=== PATIENT | female | born 1960 | race African-American/Black ===

== ENCOUNTER 2016-07-19 07:54 | Outpatient (CLI) | payer BC ==
[2016-07-19 08:17] LABS: Basophils % (Auto) 0.4 % (0.0-1.8); Eosinophils % (Auto) 2.2 % (0.0-4.3); Hematocrit 40.8 % (30.3-42.9); Hemoglobin 13.4 gm/dl (10.1-14.3); Mean Corpuscular HGB Conc 33 % (30-34); Mean Corpuscular Hemoglobin 29 pg (28-32); Mean Corpuscular Volume 89 fl (79-97); Platelet Count 196 K/mm3 (140-440); Red Cell Distribution Width 13.7 % (13.2-15.2); White Blood Count 7.1 K/mm3 (4.5-11.0)
[2016-07-19 08:35] LABS: Albumin/Globulin Ratio 1.2 %; BUN/Creatinine Ratio 23.84; Bilirubin,Total 0.3 mg/dL (0.1-1.2); Chloride 104.7 mmol/L (98-107); Potassium 4.3 mmol/L (3.6-5.0); Total Protein 7.4 g/dL (6.3-8.2)
[2016-07-21 17:21] LABS: Vitamin D, 25-OH, Total 33 ng/mL (30-100)
== END 2016-07-19 07:55 | disposition home or self-care (01) ==
LOC: LAB 07:54
PROVIDERS: ATTEND Internal Medicine Nephrology
DX: I12.9 Hypertensive chronic kidney disease with stage 1 through stage 4 chronic kidney disease, or unspecified chronic kidney disease (principal); N18.3 Chronic kidney disease, stage 3 (moderate); N28.1 Cyst of kidney, acquired; R80.9 Proteinuria, unspecified; E78.5 Hyperlipidemia, unspecified; E55.9 Vitamin D deficiency, unspecified
CPT/HCPCS: 36415; 80053; 82306; 83970; 85025

== ENCOUNTER 2016-07-27 07:59 | Outpatient (CLI) | payer BC ==
--- NOTE | 2016-07-27 11:52 | Ultrasound Report ---
RIGHT UPPER QUADRANT ULTRASOUND: HISTORY: Hepatitis B. Technique: Transabdominal ultrasound imaging with Doppler interrogation. FINDINGS: The gallbladder is sonolucent with no evidence of stones, polyps or wall thickening. The common duct is normal in caliber. Images of the liver parenchyma, pancreas, right kidney and aorta are within normal limits. The previously described possible calculus in the superior right kidney on 01/13/16 is not appreciated on today's exam. No perihepatic ascites. IMPRESSION: Unremarkable right upper quadrant ultrasound.
== END 2016-07-27 08:00 | disposition home or self-care (01) ==
LOC: SPVWC 07:59
PROVIDERS: ATTEND Internal Medicine Gastroenterology
DX: B19.10 Unspecified viral hepatitis B without hepatic coma (principal)
CPT/HCPCS: 76705

== ENCOUNTER 2017-01-24 08:53 | Outpatient (CLI) | payer BC ==
[2017-01-24 09:06] LABS: Basophils % (Auto) 0.5 % (0.0-1.8); Eosinophils % (Auto) 2.5 % (0.0-4.3); Hematocrit 41.7 % (30.3-42.9); Hemoglobin 13.8 gm/dl (10.1-14.3); Mean Corpuscular HGB Conc 33 % (30-34); Mean Corpuscular Hemoglobin 29 pg (28-32); Mean Corpuscular Volume 89 fl (79-97); Platelet Count 195 K/mm3 (140-440); Red Blood Count 4.69 M/mm3 (3.65-5.03); Red Cell Distribution Width 13.7 % (13.2-15.2); White Blood Count 7.4 K/mm3 (4.5-11.0)
[2017-01-24 09:29] LABS: Albumin/Globulin Ratio 1.1 %; Bilirubin,Total 0.5 mg/dL (0.1-1.2); Calcium 9.5 mg/dL (8.4-10.2); Chloride 100.1 mmol/L (98-107); Potassium 4.4 mmol/L (3.6-5.0); Total Protein 7.6 g/dL (6.3-8.2)
== END 2017-01-24 08:54 | disposition home or self-care (01) ==
LOC: LAB 08:53
PROVIDERS: ATTEND Internal Medicine Nephrology
DX: I12.9 Hypertensive chronic kidney disease with stage 1 through stage 4 chronic kidney disease, or unspecified chronic kidney disease (principal); N18.3 Chronic kidney disease, stage 3 (moderate); E78.5 Hyperlipidemia, unspecified; R80.9 Proteinuria, unspecified; N28.1 Cyst of kidney, acquired; E55.9 Vitamin D deficiency, unspecified; Z79.899 Other long term (current) drug therapy
CPT/HCPCS: 36415; 80053; 83036; 85025

== ENCOUNTER 2017-01-25 10:36 | Outpatient (CLI) | payer BC ==
--- NOTE | 2017-01-28 15:32 | Cat Scan Report ---
CT ABDOMEN WITHOUT CONTRAST: 01/25/17 10:36:00 CLINICAL:Followup renal cyst COMPARISON: MRI abdomen 05/13/15 and renal ultrasound 03/28/12 TECHNIQUE: Volumetric acquisition and 1.25 millimeter scan reconstructions from the lung bases through the iliac crest. The study was performed without oral contrast. FINDINGS: Abdomen: Stable left lower pole renal cyst measuring approximately 3.0 x 2.5 x 2.4 cm. A few punctate calcifications are identified dependently within the cyst and within the cyst wall. The additional smaller bilateral renal cysts identified on MRI are not identified on this study. The left kidney measures 9.1 cm in length and the right kidney measures 9.3 cm in length. The renal plica systems and ureters are nondilated. No renal calculus. Normal liver, bile ducts and gallbladder. Normal stomach, duodenum, pancreas and spleen. Normal adrenal glands. Mild calcification of the abdominal aorta. Normal inferior vena cava. No ascites and no pneumoperitoneum. The imaged portions of small bowel and colon are normal. The appendix is normal. IMPRESSION: 1. Stable 3 cm benign left lower pole renal cyst. 2. No other significant finding.
== END 2017-01-25 10:37 | disposition home or self-care (01) ==
LOC: SPVIMAG 10:36
PROVIDERS: ATTEND Internal Medicine Nephrology
DX: N18.3 Chronic kidney disease, stage 3 (moderate) (principal); N28.1 Cyst of kidney, acquired; I70.0 Atherosclerosis of aorta; N28.89 Other specified disorders of kidney and ureter
CPT/HCPCS: 74150

== ENCOUNTER 2017-05-24 13:49 | Outpatient (CLI) | payer BC ==
--- NOTE | 2017-05-25 10:28 | Mammography Report ---
BILATERAL DIGITAL SCREENING MAMMOGRAM with CAD: 05/24/17 13:49:00 CLINICAL: Routine screening. COMPARISON:05/05/16 FINDINGS: The breasts are heterogeneously dense, which may obscure small masses. No mass, architectural distortion or suspicious calcifications. IMPRESSION: No mammographic evidence of malignancy. BI-RADS CATEGORY: 1 - - Negative RECOMMENDATION: Routine mammographic screening in one year. COMMENT: Patient follow-up letters are generated by our [email or web address] application.
== END 2017-05-24 13:50 | disposition home or self-care (01) ==
LOC: SPVWC 13:49
PROVIDERS: ATTEND Obstetrics & Gynecology
DX: Z12.31 Encounter for screening mammogram for malignant neoplasm of breast (principal)
CPT/HCPCS: 77067; G0202

== ENCOUNTER 2017-11-14 08:44 | Outpatient (CLI) | payer BC ==
[2017-11-14 10:48] LABS: Basophils % (Auto) 0.5 % (0.0-1.8); Eosinophils # (Auto) 0.1 K/mm3 (0.0-0.4); Hematocrit 43.1 % (30.3-42.9); Hemoglobin 14.7 gm/dl (10.1-14.3); Lymphocytes # (Auto) 3.1 K/mm3 (1.2-5.4); Lymphocytes % (Auto) 43.9 % (13.4-35.0); Mean Corpuscular HGB Conc 34 % (30-34); Mean Corpuscular Hemoglobin 30 pg (28-32); Mean Corpuscular Volume 88 fl (79-97); Monocytes # (Auto) 0.5 K/mm3 (0.0-0.8); Monocytes % (Auto) 7.2 % (0.0-7.3); Platelet Count 200 K/mm3 (140-440); Red Cell Distribution Width 13.8 % (13.2-15.2)
[2017-11-14 11:15] LABS: Albumin 4.1 g/dL (3.9-5); Calcium 9.7 mg/dL (8.4-10.2); Chol/HDL Ratio 3.98 %
[2017-11-14 14:48] LABS: Creatinine,Urine 70.8 mg/dL (0.1-20.0)
== END 2017-11-14 08:45 | disposition home or self-care (01) ==
LOC: LAB 08:44
PROVIDERS: ATTEND Internal Medicine Nephrology
DX: N18.3 Chronic kidney disease, stage 3 (moderate) (principal); R94.4 Abnormal results of kidney function studies; E78.5 Hyperlipidemia, unspecified
CPT/HCPCS: 36415; 80053; 80061; 82565; 82570; 82575; 83970; 85025

== ENCOUNTER 2017-12-20 08:17 | Outpatient (CLI) | payer BC ==
--- NOTE | 2017-12-20 11:15 | Ultrasound Report ---
ULTRASOUND ABDOMEN INDICATION: Kidney disease. COMPARISON: 07/27/2016 RUQ ultrasound and 01/25/[address] FINDINGS: Abdominal sonography demonstrates grossly normal hepatic contours with slight nonspecific coarsening possible. No focal suspicious hepatic lesions or biliary dilatation. No gallstones, pericholecystic fluid or positive sonographic Ventura sign. Gallbladder wall thickness is 3 mm. CBD caliber is 6 mm. Homogenous spleen, 8.5 cm in length. No ascites. Normal imaged pancreas, aorta and IVC. No hydronephrosis. Slight increased renal cortical echogenicity. Right kidney is 9 x 5 x 5 cm with cortical thickness of 1.5 cm. Left kidney estimated at 8.8 x 4.7 x 3.7 cm with cortical thickness of 1.2 cm. A 2.6 x 1.7 x 2.2 cm left renal cortical cyst again noted with small peripheral calcifications visible on prior CT while its size grossly stable dating back to 03/28/2012 renal ultrasound. CONCLUSION: No acute abdominal sonographic abnormality in this patient with mild underlying medical renal disease, stable left renal cyst and slightly coarse liver, as described. Please correlate. Thank you for the opportunity to participate in this patient's care.
== END 2017-12-20 08:18 | disposition home or self-care (01) ==
LOC: SPVWC 08:17
PROVIDERS: ATTEND Internal Medicine Nephrology
DX: N18.3 Chronic kidney disease, stage 3 (moderate) (principal); N28.1 Cyst of kidney, acquired
CPT/HCPCS: 76700

== ENCOUNTER 2017-12-23 10:32 | Outpatient (CLI) | payer BC ==
[2017-12-23 11:05] LABS: Calcium 9.5 mg/dL (8.4-10.2)
[2017-12-23 13:30] LABS: Bilirubin,Urine NEG (Negative); Blood,Urine NEG (Negative); Color,Urine Amber (Yellow); Mucus,Urine FEW /HPF; Urobilinogen,Urine < 2.0 mg/dL (<2.0)
== END 2017-12-23 10:33 | disposition home or self-care (01) ==
LOC: LAB 10:32
PROVIDERS: ATTEND Internal Medicine Nephrology
DX: I13.0 Hypertensive heart and chronic kidney disease with heart failure and stage 1 through stage 4 chronic kidney disease, or unspecified chronic kidney disease (principal); N18.3 Chronic kidney disease, stage 3 (moderate); R80.9 Proteinuria, unspecified; E78.5 Hyperlipidemia, unspecified; N28.1 Cyst of kidney, acquired; E55.9 Vitamin D deficiency, unspecified; R73.01 Impaired fasting glucose
CPT/HCPCS: 36415; 80048; 81001; 82040; 84100; 89050

== ENCOUNTER 2018-08-25 13:48 | Outpatient (CLI) | payer BC ==
[2018-08-25 14:35] LABS: Calcium 9.5 mg/dL (8.4-10.2)
[2018-08-25 14:49] LABS: Bacteria,Urine 1+ /HPF (Negative); Bilirubin,Urine NEG (Negative); Blood,Urine NEG (Negative); Color,Urine Amber (Yellow); Urobilinogen,Urine < 2.0 mg/dL (<2.0)
[2018-08-25 14:50] LABS: Protein,Urine >2000 mg dL mg/dL (Negative)
[2018-08-25 14:58] LABS: Creatinine,Urine 193.7 mg/dL (0.1-20.0)
[2018-08-25 15:09] LABS: Protein/Creatinine Ratio,Urine 1.39
== END 2018-08-25 13:49 | disposition home or self-care (01) ==
LOC: LAB 13:48
PROVIDERS: ATTEND Internal Medicine Nephrology
DX: I12.9 Hypertensive chronic kidney disease with stage 1 through stage 4 chronic kidney disease, or unspecified chronic kidney disease (principal); N18.3 Chronic kidney disease, stage 3 (moderate); E78.5 Hyperlipidemia, unspecified; R80.9 Proteinuria, unspecified; E55.9 Vitamin D deficiency, unspecified; N28.1 Cyst of kidney, acquired
CPT/HCPCS: 36415; 80053; 81001; 82570; 83036; 84156; 89050

== ENCOUNTER 2019-01-15 08:50 | Outpatient (CLI) | payer BC ==
[2019-01-15 09:08] LABS: Basophils % (Auto) 0.4 % (0.0-1.8); Eosinophils # (Auto) 0.2 K/mm3 (0.0-0.4); Eosinophils % (Auto) 2.1 % (0.0-4.3); Hematocrit 39.6 % (30.3-42.9); Hemoglobin 13.2 gm/dl (10.1-14.3); Lymphocytes # (Auto) 3.2 K/mm3 (1.2-5.4); Lymphocytes % (Auto) 41.9 % (13.4-35.0); Mean Corpuscular HGB Conc 33 % (30-34); Mean Corpuscular Volume 90 fl (79-97); Monocytes # (Auto) 0.5 K/mm3 (0.0-0.8); Monocytes % (Auto) 6.9 % (0.0-7.3); Platelet Count 213 K/mm3 (140-440); Red Blood Count 4.42 M/mm3 (3.65-5.03); Red Cell Distribution Width 13.8 % (13.2-15.2)
[2019-01-15 09:28] LABS: Albumin 4.1 g/dL (3.9-5); Calcium 9.6 mg/dL (8.4-10.2)
[2019-01-15 15:49] LABS: Creatinine,Urine 147.8 mg/dL (0.1-20.0); Protein/Creatinine Ratio,Urine 1.17
== END 2019-01-15 08:51 | disposition home or self-care (01) ==
LOC: LAB 08:50
PROVIDERS: ATTEND Internal Medicine Nephrology
DX: I12.9 Hypertensive chronic kidney disease with stage 1 through stage 4 chronic kidney disease, or unspecified chronic kidney disease (principal); N18.3 Chronic kidney disease, stage 3 (moderate); R80.9 Proteinuria, unspecified; E78.5 Hyperlipidemia, unspecified; N28.1 Cyst of kidney, acquired; E55.9 Vitamin D deficiency, unspecified; R73.01 Impaired fasting glucose; E66.9 Obesity, unspecified
CPT/HCPCS: 36415; 80053; 82570; 84156; 85025

== ENCOUNTER 2019-02-19 09:51 | Outpatient (CLI) | payer BC ==
[2019-02-19 10:34] LABS: Bilirubin,Urine NEG (Negative); Blood,Urine NEG (Negative); Color,Urine Amber (Yellow); Urobilinogen,Urine < 2.0 mg/dL (<2.0)
[2019-02-19 10:38] LABS: Protein,Urine >2000 mg dL mg/dL (Negative)
[2019-02-19 10:57] LABS: Albumin 3.9 g/dL (3.9-5); Calcium 9.1 mg/dL (8.4-10.2)
[2019-02-19 11:29] LABS: Patient Height,Urine 65.5 inches
== END 2019-02-19 09:52 | disposition home or self-care (01) ==
LOC: LAB 09:51
PROVIDERS: ATTEND Internal Medicine Nephrology
DX: I12.9 Hypertensive chronic kidney disease with stage 1 through stage 4 chronic kidney disease, or unspecified chronic kidney disease (principal); N18.3 Chronic kidney disease, stage 3 (moderate); E78.5 Hyperlipidemia, unspecified; N28.1 Cyst of kidney, acquired; E55.9 Vitamin D deficiency, unspecified; R73.01 Impaired fasting glucose; R80.9 Proteinuria, unspecified; E66.9 Obesity, unspecified
CPT/HCPCS: 36415; 80048; 81001; 82040; 82565; 82570; 82575; 84100; 84156; 84165; 86160; 86225; 87517; 89050

== ENCOUNTER 2019-02-20 07:21 | Outpatient (CLI) | payer BC ==
--- NOTE | 2019-02-20 08:50 | Ultrasound Report ---
ULTRASOUND ABDOMEN, COMPLETE INDICATION: N18.3 CHRONIC KIDNEY DISEASE STAGE 3. COMPARISON: None available. FINDINGS: Pancreas: Normal. Abdominal Aorta: Normal. IVC: Normal. Liver: Moderate coarse increased echotexture characteristic for steatosis. Liver measures 13.8 cm in length. Gallbladder: Normal. Bile ducts: Normal. Common Bile Duct measures 3 mm. Right Kidney: Moderate increased echotexture measuring 9.1 cm in length. Left Kidney: Moderate increased echotexture characteristic for medical renal disease measuring 10.4 c m in length.Complex cystic mass with internal echoes and calcification measuring 2.9 x 2.7 x 2.8 cm. No color Doppler flow visualized on color Doppler interrogation to suggest solid renal cell carcinoma Spleen: Normal. Free fluid: None. Additional Findings: None. IMPRESSION: 1. Echogenic kidneys characteristic for medical renal disease. 2. Complex left renal cystic lesion measuring 2.9 cm characteristic for Bosniak type II F renal cyst. Recommend follow-up ultrasound and/or CT in 6 months. 3. Moderate hepatic steatosis Signer Name: Francis Campbell MD Signed: 02/20/2019 8:45 AM Workstation Name: [id number]
== END 2019-02-20 07:22 | disposition home or self-care (01) ==
LOC: US 07:21
PROVIDERS: ATTEND Internal Medicine Nephrology
DX: N28.1 Cyst of kidney, acquired (principal); N18.3 Chronic kidney disease, stage 3 (moderate)
CPT/HCPCS: 76700

== ENCOUNTER 2019-05-23 08:29 | Outpatient (CLI) | payer BC ==
[2019-05-23 09:24] LABS: Albumin 4.2 g/dL (3.9-5); Calcium 9.5 mg/dL (8.4-10.2)
[2019-05-23 11:58] LABS: Creatinine,Urine 162.3 mg/dL (0.1-20.0)
[2019-05-23 12:10] LABS: Protein/Creatinine Ratio,Urine 1.37
== END 2019-05-23 08:30 | disposition home or self-care (01) ==
LOC: LAB 08:29
PROVIDERS: ATTEND Internal Medicine Nephrology
DX: Z09 Encounter for follow-up examination after completed treatment for conditions other than malignant neoplasm (principal); I12.9 Hypertensive chronic kidney disease with stage 1 through stage 4 chronic kidney disease, or unspecified chronic kidney disease; N18.3 Chronic kidney disease, stage 3 (moderate); R80.9 Proteinuria, unspecified; R73.01 Impaired fasting glucose; E78.5 Hyperlipidemia, unspecified; N28.1 Cyst of kidney, acquired; E55.9 Vitamin D deficiency, unspecified
CPT/HCPCS: 36415; 80053; 82570; 84156

== ENCOUNTER 2019-06-19 08:49 | Outpatient (CLI) | payer BC ==
--- NOTE | 2019-06-19 13:48 | Mammography Report ---
DIGITAL SCREENING MAMMOGRAM WITH TOMOSYNTHESIS WITH CAD, 06/19/2019 INDICATION: Routine Screening Mammography. SCREENING MAMMOGRAM TECHNIQUE: Digital bilateral 2D and 3D mammography with tomosynthesis was obtained in the craniocau ignacio and mediolateral oblique projections. Computer-Aided Detection (CAD) analysis was used for inter pretation of this study. COMPARISON: 05/30/2018 FINDINGS: Breast Density: The breasts are heterogeneously dense, which may obscure small masses. There is no evidence of dominant mass, suspicious calcifications or architectural distortion in eithe r breast. IMPRESSION: No mammographic evidence of malignancy. Follow up recommendation: Routine yearly BI-RADS Category 1: Negative. A "normal" or negative report should not discourage follow up or biopsy of a clinically significant f inding. A written summary of these findings will be mailed to the patient. The patient will be entered into a mammography reporting system which will generate a reminder letter for the patient's next appointmen t at the appropriate interval. The [employer] recommends yearly mammograms starting at age 40 and continuing as l vinnie as a woman is in good health. Breast MRI is recommended for women with an approximate 20-25% or greater lifetime risk of breast cancer, including women with a strong family history of breast or ova joy cancer or who have been treated for Hodgkin's disease. Signer Name: Farhan Cotton MD Signed: 06/19/2019 1:44 PM Workstation Name: [id number]
== END 2019-06-19 08:50 | disposition home or self-care (01) ==
LOC: SPVWC 08:49
PROVIDERS: ATTEND Obstetrics & Gynecology
DX: Z12.31 Encounter for screening mammogram for malignant neoplasm of breast (principal)
CPT/HCPCS: 77063; 77067

== ENCOUNTER 2019-11-28 08:29 | Outpatient (CLI) | payer BC ==
[2019-11-28 09:27] LABS: Albumin 4.3 g/dL (3.9-5)
== END 2019-11-28 08:30 | disposition home or self-care (01) ==
LOC: LAB 08:29
PROVIDERS: ATTEND Internal Medicine Gastroenterology
DX: B19.10 Unspecified viral hepatitis B without hepatic coma (principal)
CPT/HCPCS: 36415; 80053; 82106; 87517

== ENCOUNTER 2019-12-03 06:22 | Outpatient (CLI) | payer BC | END 2019-12-03 06:23 | disposition home or self-care (01) | LOC: MRI 06:22 | PROVIDERS: ATTEND Orthopaedic Surgery | DX: S83.242A Other tear of medial meniscus, current injury, left knee, initial encounter (principal); M17.12 Unilateral primary osteoarthritis, left knee; M25.462 Effusion, left knee; M25.762 Osteophyte, left knee; X58.XXXA Exposure to other specified factors, initial encounter; Y93.89 Activity, other specified; Y92.89 Other specified places as the place of occurrence of the external cause; Y99.8 Other external cause status | CPT/HCPCS: 73721 ==

== ENCOUNTER 2020-05-02 07:13 | Outpatient (CLI) | payer BC ==
[2020-05-02 07:35] LABS: Hematocrit 38.5 % (30.3-42.9); Hemoglobin 12.7 gm/dl (10.1-14.3)
[2020-05-02 08:09] LABS: Albumin 4.1 g/dL (3.9-5); Calcium 9.2 mg/dL (8.4-10.2)
[2020-05-02 11:28] LABS: Creatinine,Urine 100.7 mg/dL (0.1-20.0); Protein/Creatinine Ratio,Urine 0.47
[2020-05-05 13:49] LABS: Vitamin D, 25-OH, D2 <4 ng/mL
== END 2020-05-02 07:14 | disposition home or self-care (01) ==
LOC: LAB 07:13
PROVIDERS: ATTEND Internal Medicine Nephrology
DX: I12.9 Hypertensive chronic kidney disease with stage 1 through stage 4 chronic kidney disease, or unspecified chronic kidney disease (principal); N18.4 Chronic kidney disease, stage 4 (severe); R80.9 Proteinuria, unspecified; E78.5 Hyperlipidemia, unspecified; N28.1 Cyst of kidney, acquired; E55.9 Vitamin D deficiency, unspecified; R73.01 Impaired fasting glucose; E66.9 Obesity, unspecified
CPT/HCPCS: 36415; 80053; 82306; 82570; 83036; 83970; 84156; 85014; 85018

== ENCOUNTER 2020-07-03 12:41 | Outpatient (CLI) | payer BC ==
--- NOTE | 2020-07-03 17:05 | Mammography Report ---
DIGITAL SCREENING MAMMOGRAM WITH TOMOSYNTHESIS WITH CAD, 07/03/2020 CLINICAL INFORMATION / INDICATION: Routine Screening Mammography. TECHNIQUE: Digital bilateral 2D and 3D mammography with tomosynthesis was obtained in the craniocaud al and mediolateral oblique projections. Computer-Aided Detection (CAD) analysis was used for interp retation of this study. COMPARISON: Prior mammograms 06/19/2019 and 05/30/2018 FINDINGS: Breast Density: There are scattered areas of fibroglandular density. No dominant mass, suspicious calcifications, or architectural distortion in either breast. There has been no significant change compared with the prior examinations. IMPRESSION: No mammographic evidence of malignancy. Follow up recommendation: Routine yearly BI-RADS Category 1: Negative. A "normal" or negative report should not discourage follow up or biopsy of a clinically significant f inding. A written summary of these findings will be mailed to the patient. The patient will be entered into a mammography reporting system which will generate a reminder letter for the patient's next appointmen t at the appropriate interval. The [employer] recommends yearly mammograms starting at age 40 and continuing as l vinnie as a woman is in good health. Breast MRI is recommended for women with an approximate 20-25% or greater lifetime risk of breast cancer, including women with a strong family history of breast or ova joy cancer or who have been treated for Hodgkin's disease. Signer Name: Yessenia Menchaca MD Signed: 07/03/2020 5:01 PM Workstation Name: [id number]
== END 2020-07-03 12:42 | disposition home or self-care (01) ==
LOC: SPVWC 12:41
PROVIDERS: ATTEND Obstetrics & Gynecology
DX: Z12.31 Encounter for screening mammogram for malignant neoplasm of breast (principal)
CPT/HCPCS: 77063; 77067

== ENCOUNTER 2020-07-04 12:20 | Outpatient (CLI) | payer BC | END 2020-07-04 12:21 | disposition home or self-care (01) | LOC: LAB 12:20 | PROVIDERS: ATTEND Internal Medicine | DX: M79.672 Pain in left foot (principal) | CPT/HCPCS: 36415; 84550 ==

== ENCOUNTER 2020-07-08 09:01 | Outpatient (CLI) | payer BC ==
--- NOTE | 2020-07-08 12:05 | Ultrasound Report ---
Limited abdominal ultrasound. INDICATION / CLINICAL INFORMATION: HEPATITIS B,FATTY LIVER. COMPARISON: None available. FINDINGS: PANCREAS: No significant abnormality. ABDOMINAL AORTA: No significant abnormality. IVC: No significant abnormality. LIVER: Liver measures 10.6 cm with fatty infiltration. GALLBLADDER: No gallstones or gallbladder wall thickening BILE DUCTS: No significant abnormality. Common bile duct measures 3 mm. KIDNEYS: Right: Right kidney is echogenic with small cysts measure 1.4 cm. Left: No significant abno rmality. IMPRESSION: 1. Fatty infiltration of the liver. 2. Echogenic right kidney with renal cyst. Signer Name: Enoch Anne MD Signed: 07/08/2020 12:01 PM Workstation Name: [email or web address]
== END 2020-07-08 09:02 | disposition home or self-care (01) ==
LOC: US 09:01
PROVIDERS: ATTEND Internal Medicine Gastroenterology
DX: N28.1 Cyst of kidney, acquired (principal); K76.0 Fatty (change of) liver, not elsewhere classified; B19.10 Unspecified viral hepatitis B without hepatic coma
CPT/HCPCS: 76705

== ENCOUNTER 2020-07-10 10:18 | Outpatient (CLI) | payer BC ==
[2020-07-10 11:10] LABS: Basophils % (Auto) 0.3 % (0.0-1.8); Eosinophils # (Auto) 0.2 K/mm3 (0.0-0.4); Eosinophils % (Auto) 2.3 % (0.0-4.3); Hematocrit 34.7 % (30.3-42.9); Hemoglobin 11.7 gm/dl (10.1-14.3); Lymphocytes # (Auto) 2.9 K/mm3 (1.2-5.4); Lymphocytes % (Auto) 30.1 % (13.4-35.0); Mean Corpuscular HGB Conc 34 % (30-34); Mean Corpuscular Volume 89 fl (79-97); Platelet Count 242 K/mm3 (140-440); Red Blood Count 3.92 M/mm3 (3.65-5.03); Red Cell Distribution Width 15.3 % (13.2-15.2)
[2020-07-10 11:41] LABS: Calcium 9.2 mg/dL (8.4-10.2)
== END 2020-07-10 10:19 | disposition home or self-care (01) ==
LOC: LAB 10:18
PROVIDERS: ATTEND Internal Medicine Nephrology
DX: I10 Essential (primary) hypertension (principal); N18.4 Chronic kidney disease, stage 4 (severe); R80.9 Proteinuria, unspecified; E78.5 Hyperlipidemia, unspecified; N28.1 Cyst of kidney, acquired; E55.9 Vitamin D deficiency, unspecified; R73.01 Impaired fasting glucose; E66.9 Obesity, unspecified
CPT/HCPCS: 36415; 80053; 83970; 85025

== ENCOUNTER 2020-07-25 07:35 | Outpatient (CLI) | payer BC ==
[2020-07-25 08:40] LABS: Calcium 9.3 mg/dL (8.4-10.2)
[2020-07-25 08:53] LABS: Hematocrit 35.3 % (30.3-42.9); Hemoglobin 11.5 gm/dl (10.1-14.3); Mean Corpuscular HGB Conc 33 % (30-34); Mean Corpuscular Volume 90 fl (79-97); Platelet Count 226 K/mm3 (140-440); Red Blood Count 3.91 M/mm3 (3.65-5.03); Red Cell Distribution Width 16.3 % (13.2-15.2)
== END 2020-07-25 07:36 | disposition home or self-care (01) ==
LOC: LAB 07:35
PROVIDERS: ATTEND Internal Medicine Gastroenterology
DX: I12.9 Hypertensive chronic kidney disease with stage 1 through stage 4 chronic kidney disease, or unspecified chronic kidney disease (principal); N18.4 Chronic kidney disease, stage 4 (severe); B19.10 Unspecified viral hepatitis B without hepatic coma; R80.9 Proteinuria, unspecified; E78.5 Hyperlipidemia, unspecified; N28.1 Cyst of kidney, acquired; E55.9 Vitamin D deficiency, unspecified; R73.01 Impaired fasting glucose; E66.9 Obesity, unspecified; M12.9 Arthropathy, unspecified; E87.5 Hyperkalemia
CPT/HCPCS: 36415; 80053; 82106; 84100; 84550; 85027; 87517

== ENCOUNTER 2020-09-18 08:20 | Outpatient (CLI) | payer BC ==
[2020-09-18 08:52] LABS: Basophils % (Auto) 0.4 % (0.0-1.8); Eosinophils # (Auto) 0.4 K/mm3 (0.0-0.4); Eosinophils % (Auto) 4.5 % (0.0-4.3); Hematocrit 36.8 % (30.3-42.9); Hemoglobin 12.2 gm/dl (10.1-14.3); Lymphocytes % (Auto) 36.9 % (13.4-35.0); Mean Corpuscular HGB Conc 33 % (30-34); Mean Corpuscular Volume 90 fl (79-97); Monocytes # (Auto) 0.9 K/mm3 (0.0-0.8); Monocytes % (Auto) 11.2 % (0.0-7.3); Platelet Count 219 K/mm3 (140-440); Red Blood Count 4.08 M/mm3 (3.65-5.03); Red Cell Distribution Width 15.2 % (13.2-15.2)
[2020-09-18 09:24] LABS: Albumin 4.2 g/dL (3.9-5); Calcium 9.4 mg/dL (8.4-10.2); Uric Acid 5.5 mg/dL (3.5-7.6)
== END 2020-09-18 08:21 | disposition home or self-care (01) ==
LOC: LAB 08:20
PROVIDERS: ATTEND Internal Medicine Nephrology
DX: I12.9 Hypertensive chronic kidney disease with stage 1 through stage 4 chronic kidney disease, or unspecified chronic kidney disease (principal); N18.4 Chronic kidney disease, stage 4 (severe); R80.9 Proteinuria, unspecified; E78.5 Hyperlipidemia, unspecified; E55.9 Vitamin D deficiency, unspecified; E66.9 Obesity, unspecified; M12.9 Arthropathy, unspecified
CPT/HCPCS: 36415; 80048; 82040; 83970; 84100; 84550; 85025

== ENCOUNTER 2020-12-17 07:27 | Outpatient (CLI) | payer BC ==
[2020-12-17 08:19] LABS: Basophils % (Auto) 0.5 % (0.0-1.8); Eosinophils # (Auto) 0.3 K/mm3 (0.0-0.4); Eosinophils % (Auto) 3.5 % (0.0-4.3); Hematocrit 36.1 % (30.3-42.9); Hemoglobin 11.9 gm/dl (10.1-14.3); Lymphocytes # (Auto) 2.6 K/mm3 (1.2-5.4); Lymphocytes % (Auto) 35.2 % (13.4-35.0); Mean Corpuscular HGB Conc 33 % (30-34); Mean Corpuscular Volume 90 fl (79-97); Monocytes # (Auto) 0.4 K/mm3 (0.0-0.8); Monocytes % (Auto) 6.1 % (0.0-7.3); Platelet Count 209 K/mm3 (140-440); Red Blood Count 4.01 M/mm3 (3.65-5.03); Red Cell Distribution Width 15.4 % (13.2-15.2)
[2020-12-17 08:39] LABS: Albumin 4.4 g/dL (3.9-5); Calcium 9.5 mg/dL (8.4-10.2)
[2020-12-17 11:17] LABS: Bilirubin,Urine NEG (Negative); Blood,Urine NEG (Negative); Color,Urine Amber (Yellow); Urobilinogen,Urine < 2.0 mg/dL (<2.0)
[2020-12-17 14:16] LABS: Creatinine,Urine 118.5 mg/dL (0.1-20.0); Protein/Creatinine Ratio,Urine 0.68
== END 2020-12-17 07:28 | disposition home or self-care (01) ==
LOC: LAB 07:27
PROVIDERS: ATTEND Internal Medicine Nephrology
DX: I12.9 Hypertensive chronic kidney disease with stage 1 through stage 4 chronic kidney disease, or unspecified chronic kidney disease (principal); N18.4 Chronic kidney disease, stage 4 (severe); R80.9 Proteinuria, unspecified; E78.5 Hyperlipidemia, unspecified; N28.1 Cyst of kidney, acquired; E55.9 Vitamin D deficiency, unspecified; R73.01 Impaired fasting glucose; E66.9 Obesity, unspecified; M12.9 Arthropathy, unspecified; E87.5 Hyperkalemia
CPT/HCPCS: 36415; 80048; 81001; 82040; 82570; 83036; 83970; 84100; 84156; 85025; 87086

== ENCOUNTER 2021-02-25 08:00 | Outpatient (CLI) | payer BC ==
[2021-02-25 10:24] LABS: Basophils % (Auto) 0.4 % (0.0-1.8); Bilirubin,Urine NEG (Negative); Blood,Urine NEG (Negative); Color,Urine Amber (Yellow); Eosinophils # (Auto) 0.2 K/mm3 (0.0-0.4); Eosinophils % (Auto) 2.1 % (0.0-4.3); Hematocrit 36.7 % (30.3-42.9); Hemoglobin 11.8 gm/dl (10.1-14.3); Lymphocytes # (Auto) 2.7 K/mm3 (1.2-5.4); Lymphocytes % (Auto) 31.9 % (13.4-35.0); Mean Corpuscular HGB Conc 32 % (30-34); Mean Corpuscular Volume 91 fl (79-97); Monocytes # (Auto) 0.6 K/mm3 (0.0-0.8); Monocytes % (Auto) 6.7 % (0.0-7.3); Mucus,Urine FEW /HPF; Platelet Count 226 K/mm3 (140-440); Red Blood Count 4.03 M/mm3 (3.65-5.03); Red Cell Distribution Width 15.4 % (13.2-15.2); Urobilinogen,Urine < 2.0 mg/dL (<2.0)
[2021-02-25 10:26] LABS: Creatinine,Urine 151.6 mg/dL (0.1-20.0); Protein/Creatinine Ratio,Urine 1.26
[2021-02-25 10:36] LABS: Albumin 4.2 g/dL (3.9-5); Calcium 9.6 mg/dL (8.4-10.2)
[2021-02-25 10:45] LABS: Protein,Urine >500 mg/dL (Negative)
== END 2021-02-25 08:01 | disposition home or self-care (01) ==
LOC: LAB 08:00
PROVIDERS: ATTEND Internal Medicine Nephrology
DX: I12.9 Hypertensive chronic kidney disease with stage 1 through stage 4 chronic kidney disease, or unspecified chronic kidney disease (principal); N18.4 Chronic kidney disease, stage 4 (severe); R73.01 Impaired fasting glucose; R80.9 Proteinuria, unspecified; E78.5 Hyperlipidemia, unspecified; N28.1 Cyst of kidney, acquired; E55.9 Vitamin D deficiency, unspecified; E66.9 Obesity, unspecified; M12.9 Arthropathy, unspecified; E87.5 Hyperkalemia
CPT/HCPCS: 36415; 80048; 81001; 82040; 82570; 83036; 83970; 84100; 84156; 85025

== ENCOUNTER 2021-05-20 08:02 | Outpatient (CLI) | payer BC ==
[2021-05-20 08:43] LABS: Basophils % (Auto) 0.5 % (0.0-1.8); Eosinophils # (Auto) 0.3 K/mm3 (0.0-0.4); Eosinophils % (Auto) 3.5 % (0.0-4.3); Hematocrit 37.8 % (30.3-42.9); Hemoglobin 11.9 gm/dl (10.1-14.3); Lymphocytes # (Auto) 2.8 K/mm3 (1.2-5.4); Mean Corpuscular HGB Conc 32 % (30-34); Mean Corpuscular Volume 91 fl (79-97); Monocytes # (Auto) 0.5 K/mm3 (0.0-0.8); Monocytes % (Auto) 6.6 % (0.0-7.3); Platelet Count 215 K/mm3 (140-440); Red Blood Count 4.16 M/mm3 (3.65-5.03); Red Cell Distribution Width 15.7 % (13.2-15.2)
[2021-05-20 09:08] LABS: Chol/HDL Ratio 3.89 %
[2021-05-20 15:34] LABS: Creatinine,Urine 118.1 mg/dL (0.1-20.0); Protein/Creatinine Ratio,Urine 1.63
[2021-05-23 12:48] LABS: Vitamin D, 25-OH, D2 <4 ng/mL
== END 2021-05-20 08:03 | disposition home or self-care (01) ==
LOC: LAB 08:02
PROVIDERS: ATTEND Internal Medicine Nephrology
DX: I12.9 Hypertensive chronic kidney disease with stage 1 through stage 4 chronic kidney disease, or unspecified chronic kidney disease (principal); N18.4 Chronic kidney disease, stage 4 (severe); E55.9 Vitamin D deficiency, unspecified; R80.9 Proteinuria, unspecified; N28.1 Cyst of kidney, acquired; R73.01 Impaired fasting glucose; E66.9 Obesity, unspecified; M12.9 Arthropathy, unspecified; E87.5 Hyperkalemia; N39.0 Urinary tract infection, site not specified
CPT/HCPCS: 36415; 80061; 82306; 82570; 83735; 83970; 84156; 85025

== ENCOUNTER 2021-05-28 08:46 | Outpatient (CLI) | payer BC ==
[2021-05-28 09:34] LABS: Calcium 8.9 mg/dL (8.4-10.2)
== END 2021-05-28 08:47 | disposition home or self-care (01) ==
LOC: LAB 08:46
PROVIDERS: ATTEND Internal Medicine Nephrology
DX: I12.9 Hypertensive chronic kidney disease with stage 1 through stage 4 chronic kidney disease, or unspecified chronic kidney disease (principal); N18.4 Chronic kidney disease, stage 4 (severe); R80.9 Proteinuria, unspecified; E78.5 Hyperlipidemia, unspecified; E55.9 Vitamin D deficiency, unspecified; R73.01 Impaired fasting glucose; E66.9 Obesity, unspecified; M12.9 Arthropathy, unspecified; N39.0 Urinary tract infection, site not specified
CPT/HCPCS: 36415; 80048; 82040; 84100

== ENCOUNTER 2021-07-21 10:57 | Outpatient (CLI) | payer BC ==
--- NOTE | 2021-07-22 08:52 | Mammography Report ---
DIGITAL SCREENING MAMMOGRAM WITH TOMOSYNTHESIS WITH CAD, 07/21/2021 CLINICAL INFORMATION / INDICATION: Screening TECHNIQUE: Digital bilateral 2D and 3D mammography with tomosynthesis was obtained in the craniocaud al and mediolateral oblique projections. Computer-Aided Detection (CAD) analysis was used for interp retation of this study. COMPARISON: 01/13/2021 FINDINGS: Breast Density: There are scattered areas of fibroglandular density. No dominant mass, suspicious calcifications, or architectural distortion in either breast. Mild bilateral nodularity is stable. IMPRESSION: No mammographic evidence of malignancy. Follow up recommendation: Routine yearly BI-RADS Category 2: BENIGN. A "normal" or negative report should not discourage follow up or biopsy of a clinically significant f inding. A written summary of these findings will be mailed to the patient. The patient will be entered into a mammography reporting system which will generate a reminder letter for the patient's next appointmen t at the appropriate interval. The [employer] recommends yearly mammograms starting at age 40 and continuing as l vinnie as a woman is in good health. Breast MRI is recommended for women with an approximate 20-25% or greater lifetime risk of breast cancer, including women with a strong family history of breast or ova joy cancer or who have been treated for Hodgkin's disease. Signer Name: Rolando Farfan MD Signed: 07/22/2021 8:48 AM Workstation Name: [email or web address]
== END 2021-07-21 10:58 | disposition home or self-care (01) ==
LOC: SPVWC 10:57
PROVIDERS: ATTEND Obstetrics & Gynecology
DX: Z12.31 Encounter for screening mammogram for malignant neoplasm of breast (principal); N64.89 Other specified disorders of breast
CPT/HCPCS: 77063; 77067

== ENCOUNTER 2021-07-31 10:57 | Outpatient (CLI) | payer BC ==
[2021-07-31 12:25] LABS: Albumin 4.3 g/dL (3.9-5); Calcium 9.3 mg/dL (8.4-10.2)
[2021-07-31 13:33] LABS: Basophils % (Auto) 0.5 % (0.0-1.8); Eosinophils # (Auto) 0.2 K/mm3 (0.0-0.4); Eosinophils % (Auto) 2.7 % (0.0-4.3); Hematocrit 37.3 % (30.3-42.9); Hemoglobin 11.7 gm/dl (10.1-14.3); Lymphocytes # (Auto) 3.3 K/mm3 (1.2-5.4); Lymphocytes % (Auto) 41.2 % (13.4-35.0); Mean Corpuscular HGB Conc 31 % (30-34); Mean Corpuscular Volume 91 fl (79-97); Monocytes # (Auto) 0.5 K/mm3 (0.0-0.8); Monocytes % (Auto) 6.5 % (0.0-7.3); Platelet Count 226 K/mm3 (140-440); Red Cell Distribution Width 15.2 % (13.2-15.2)
== END 2021-07-31 10:58 | disposition home or self-care (01) ==
LOC: LAB 10:57
PROVIDERS: ATTEND Internal Medicine
DX: I12.9 Hypertensive chronic kidney disease with stage 1 through stage 4 chronic kidney disease, or unspecified chronic kidney disease (principal); N18.4 Chronic kidney disease, stage 4 (severe); R80.9 Proteinuria, unspecified; E78.5 Hyperlipidemia, unspecified; R73.01 Impaired fasting glucose; E66.9 Obesity, unspecified; M12.9 Arthropathy, unspecified; N39.0 Urinary tract infection, site not specified
CPT/HCPCS: 36415; 80048; 82040; 84100; 85025

== ENCOUNTER 2021-09-08 10:13 | Outpatient (CLI) | payer BC ==
[2021-09-08 12:11] LABS: Basophils % (Auto) 0.5 % (0.0-1.8); Eosinophils # (Auto) 0.2 K/mm3 (0.0-0.4); Eosinophils % (Auto) 2.4 % (0.0-4.3); Hematocrit 36.5 % (30.3-42.9); Hemoglobin 12.2 gm/dl (10.1-14.3); Lymphocytes # (Auto) 2.8 K/mm3 (1.2-5.4); Lymphocytes % (Auto) 36.1 % (13.4-35.0); Mean Corpuscular HGB Conc 33 % (30-34); Mean Corpuscular Volume 90 fl (79-97); Monocytes # (Auto) 0.4 K/mm3 (0.0-0.8); Monocytes % (Auto) 5.7 % (0.0-7.3); Platelet Count 229 K/mm3 (140-440); Red Blood Count 4.04 M/mm3 (3.65-5.03); Red Cell Distribution Width 15.1 % (13.2-15.2)
[2021-09-08 12:27] LABS: Creatinine,Urine 51.5 mg/dL (0.1-20.0)
[2021-09-08 12:35] LABS: Albumin 4.2 g/dL (3.9-5); Calcium 9.7 mg/dL (8.4-10.2)
[2021-09-08 12:48] LABS: Bilirubin,Urine NEG (Negative); Blood,Urine NEG (Negative); Color,Urine Yellow (Yellow); Urobilinogen,Urine < 2.0 mg/dL (<2.0)
--- NOTE | 2021-09-08 14:05 | Ultrasound Report ---
ULTRASOUND RENAL INDICATION / CLINICAL INFORMATION: N18.4 R80.9. Renal disease COMPARISON: Abdominal ultrasound 09/18/2019. FINDINGS: RIGHT KIDNEY: Length = 9.5 cm. - Echogenicity: Mildly echogenic, unchanged. - Parenchymal Thickness: Normal. - Hydronephrosis: Mild pelviectasis. - Cyst / Mass: None. - Stones: None seen. LEFT KIDNEY: Length = 10.5 cm. - Echogenicity: Mildly echogenic, unchanged. - Parenchymal Thickness: Normal. - Hydronephrosis: None. - Cyst / Mass: Mildly complex lower pole cyst measures 3.3 cm, previously 3.0 cm. Difference is likel y due to technique. - Stones: None seen. URINARY BLADDER: No significant abnormality. FREE FLUID: None. ADDITIONAL FINDINGS: None. IMPRESSION: 1. Findings suggestive of bilateral medical renal disease, unchanged. 2. There is mild right pelviectasis. No obstructing source identified sonographically. 3. Similar size of complex left renal cyst. Scribed by: Edith Plascencia RDMS, CELIOT, TRACIE Scribed: 09/08/2021 12:26 PM I have reviewed the images, agree with this report, and edited this report as needed. Signer Name: Harpreet Santana MD Signed: 09/08/2021 2:01 PM Workstation Name: [email or web address]
== END 2021-09-08 10:14 | disposition home or self-care (01) ==
LOC: US 10:13
DX: N28.1 Cyst of kidney, acquired (principal); N18.4 Chronic kidney disease, stage 4 (severe); R80.9 Proteinuria, unspecified; E55.9 Vitamin D deficiency, unspecified
CPT/HCPCS: 36415; 76770; 80048; 81001; 82040; 82306; 82565; 82570; 82575; 83970; 84100; 85025

== ENCOUNTER 2021-11-18 07:51 | Outpatient (CLI) | payer BC ==
[2021-11-18 08:52] LABS: Basophils % (Auto) 0.5 % (0.0-1.8); Eosinophils # (Auto) 0.3 K/mm3 (0.0-0.4); Eosinophils % (Auto) 3.9 % (0.0-4.3); Hematocrit 36.2 % (30.3-42.9); Lymphocytes # (Auto) 3.4 K/mm3 (1.2-5.4); Lymphocytes % (Auto) 39.1 % (13.4-35.0); Mean Corpuscular HGB Conc 33 % (30-34); Mean Corpuscular Volume 90 fl (79-97); Monocytes # (Auto) 0.5 K/mm3 (0.0-0.8); Monocytes % (Auto) 6.3 % (0.0-7.3); Platelet Count 225 K/mm3 (140-440); Red Blood Count 4.02 M/mm3 (3.65-5.03); Red Cell Distribution Width 15.4 % (13.2-15.2)
[2021-11-18 09:15] LABS: Albumin 4.2 g/dL (3.9-5); Calcium 9.5 mg/dL (8.4-10.2)
[2021-11-18 09:59] LABS: Bilirubin,Urine NEG (Negative); Blood,Urine NEG (Negative); Mucus,Urine FEW /HPF; Urobilinogen,Urine < 2.0 mg/dL (<2.0)
[2021-11-18 10:00] LABS: Color,Urine Yellow (Yellow); Protein,Urine >500 mg/dL (Negative)
[2021-11-21 12:05] LABS: Vitamin D, 25-OH, D2 <4 ng/mL
== END 2021-11-18 07:52 | disposition home or self-care (01) ==
LOC: LAB 07:51
PROVIDERS: ATTEND Internal Medicine Nephrology
DX: E78.5 Hyperlipidemia, unspecified (principal); R73.01 Impaired fasting glucose
CPT/HCPCS: 36415; 80048; 81001; 82040; 82306; 83970; 84100; 85025

== ENCOUNTER 2022-02-23 11:42 | Outpatient (CLI) | payer BC ==
--- NOTE | 2022-02-23 16:06 | Cat Scan Report ---
CT ABDOMEN AND PELVIS WITHOUT CONTRAST HISTORY: R10.31 COMPARISON: 09/08/2021 renal ultrasound. 01/25/2017 CT abdomen without contrast. TECHNIQUE: Axial CT images were obtained through the abdomen and pelvis without IV contrast. Sagittal and coronal reformatted images. All CT scans at this location are performed using CT dose reduction for ALARA by means of automated exposure control. FINDINGS: CT ABDOMEN: Lung Bases: Clear. Liver: No significant abnormality. Biliary: No significant abnormality. Spleen: No significant abnormality. Unenlarged. Pancreas: No significant abnormality. Adrenals: No significant abnormality. Kidneys: A 1.6 cm simple appearing cyst is identified at the superior pole of the right kidney. A 1.5 cm hemorrhagic cyst is identified in the mid left kidney. There is a 3.2 cm intermediate density str ucture seen in the left kidney with focal rim calcifications. This appears to represent a complex cys t. Its overall appearance appears similar to the ultrasound dated 09/08/[address] abdomen withou t contrast dated 01/25/2017. There is no evidence for nephrolithiasis or hydronephrosis. Lymphatics: No lymphadenopathy. Vasculature: No significant abnormality. Bowel/Peritoneum: No significant abnormality. No free air. No free fluid. Normal appendix. CT PELVIS: : The bladder, uterus and adnexa are unremarkable. Osseous Structures: No suspicious bony lesion or fracture. Additional Findings: None IMPRESSION: Bilateral renal cysts as described. There is a solitary simple appearing cyst in the right kidney. Th ere are 2 complex cysts in the left kidney. One appears to be a hemorrhagic cyst near mid pole measur ing 1.5 cm. A second more complex cystic lesion in the inferior left kidney demonstrates a slightly i rregular border with focal wall calcifications. This does not appear significantly changed since the noncontrast CT abdomen dated 01/25/2017. If further evaluation is needed CT or MRI with and without con trast could be obtained. Signer Name: Dylan Colón Jr, MD Signed: 02/23/2022 4:02 PM Workstation Name: [id number]
== END 2022-02-23 11:43 | disposition home or self-care (01) ==
LOC: CT 11:42
PROVIDERS: ATTEND Urology
DX: N28.1 Cyst of kidney, acquired (principal)
CPT/HCPCS: 74176

== ENCOUNTER 2022-03-10 07:20 | Outpatient (CLI) | payer BC ==
[2022-03-10 07:43] LABS: Creatinine,Urine 151.3 mg/dL (0.1-20.0)
[2022-03-10 07:51] LABS: Basophils % (Auto) 0.4 % (0.0-1.8); Eosinophils # (Auto) 0.3 K/mm3 (0.0-0.4); Eosinophils % (Auto) 3.6 % (0.0-4.3); Hematocrit 37.2 % (30.3-42.9); Hemoglobin 11.7 gm/dl (10.1-14.3); Lymphocytes % (Auto) 38.8 % (13.4-35.0); Mean Corpuscular HGB Conc 32 % (30-34); Mean Corpuscular Volume 92 fl (79-97); Monocytes # (Auto) 0.5 K/mm3 (0.0-0.8); Monocytes % (Auto) 6.8 % (0.0-7.3); Platelet Count 244 K/mm3 (140-440); Red Blood Count 4.03 M/mm3 (3.65-5.03); Red Cell Distribution Width 15.6 % (13.2-15.2)
[2022-03-10 08:25] LABS: Albumin 4.3 g/dL (3.9-5); Calcium 9.1 mg/dL (8.4-10.2); Uric Acid 4.8 mg/dL (3.5-7.6)
[2022-03-10 13:53] LABS: Protein/Creatinine Ratio,Urine 1.83
[2022-03-13 14:03] LABS: Vitamin D, 25-OH, D2 <4 ng/mL
== END 2022-03-10 07:21 | disposition home or self-care (01) ==
LOC: LAB 07:20
PROVIDERS: ATTEND Internal Medicine Nephrology
DX: I12.9 Hypertensive chronic kidney disease with stage 1 through stage 4 chronic kidney disease, or unspecified chronic kidney disease (principal); N18.4 Chronic kidney disease, stage 4 (severe); R80.9 Proteinuria, unspecified; E78.5 Hyperlipidemia, unspecified; N28.1 Cyst of kidney, acquired; E55.9 Vitamin D deficiency, unspecified; R73.01 Impaired fasting glucose; E66.9 Obesity, unspecified; M12.9 Arthropathy, unspecified; E87.5 Hyperkalemia; N39.0 Urinary tract infection, site not specified
CPT/HCPCS: 36415; 80048; 82040; 82306; 82570; 83970; 84100; 84156; 84550; 85025